=== PATIENT | male | born 1995 | race African-American/Black ===

== ENCOUNTER 2017-02-21 07:37 | Emergency (ER) | payer MEDICAID, OTHER ==
[~2017-02-21] VITALS: Ht 182.9 cm; Wt 81.6 kg
[2017-02-21 08:44] VITALS: BP 141/82
[2017-02-21] MEDS ORDERED: KETOROLAC TROMETH 60MG/2ML VIAL IM ONE (08:45)
== END 2017-02-21 08:56 | disposition home or self-care (01) ==
LOC: ER 07:37
DX: S46.912A Strain of unspecified muscle, fascia and tendon at shoulder and upper arm level, left arm, initial encounter (principal); X50.0XXA Overexertion from strenuous movement or load, initial encounter; Y93.89 Activity, other specified; Y99.8 Other external cause status; Y92.39 Other specified sports and athletic area as the place of occurrence of the external cause
CPT/HCPCS: 96372; 99283; J1885